=== PATIENT | female | born 1990 | race Caucasian/White ===

== ENCOUNTER → 2017-03-08 | Outpatient (CLI) | payer SELFPAY ==
[~2017-03-08] MED LIST: KEFLEX 500MG.500 MG PO; LOMOTIL 2.5MG.2.5 MG PO; NAPROSYN500 M1 PO; NOMEDS; ULTRAM50 MG PO; ZOFRAN ODT8 MG PO
[2017-03-08 11:06] LABS: HEMOGLOBIN 12.8 g/dL (12.2-16.2); LYMPH # 2.7 K/mm3 (0.7-4.5)
[2017-03-08 12:12] LABS: ABO BLOOD TYPE A; RH BLOOD TYPE NEGATIVE
[2017-03-08 16:52] LABS: AMPHETAMINES/METAMPHETAMINES NEGATIVE ng/mL (<1000)
[2017-03-09 08:46] LABS: HIV Screen 4th Generation wRfx Non Reactive (Non Reactive); Rapid Plasma Reagin, Quant Non Reactive (NonRea<1:1); Rubella Antibodies, IgG 2.17 index (Immune >0.99)
[2017-03-09 14:37] LABS: HBsAg Screen Negative (Negative)
== END ==
LOC: LAB 10:24
PROVIDERS: Obstetrics & Gynecology
DX: Z36 Encounter for antenatal screening of mother (principal); Z04.8 Encounter for examination and observation for other specified reasons; Z34.80 Encounter for supervision of other normal pregnancy, unspecified trimester
CPT/HCPCS: G0432

== ENCOUNTER → 2017-04-22 | Outpatient (CLI) | payer MEDICAID ==
[2017-04-29 18:12] LABS: Gest. Age on Collection Date 16.3 WEEKS; Maternal Age At EDD 27.7 YEARS; Results REPORT
[2017-04-29 18:13] LABS: AFP Value 19.7 ng/mL; Insulin Dep Diabetes NOT PROVIDED; hCG MoM 0.44; hCG Value 11696 mIU/mL; uE3 Value 0.75 ng/mL
[2017-04-29 18:14] LABS: DIA MoM 0.58; DIA Value 78.15 pg/mL; DSR (Second Trimester) 1 IN 10000; Interpretation SCREEN NEGATIVE; OSBR Risk 1 IN 10000; uE3 MoM 0.96
== END ==
LOC: LAB 09:59
PROVIDERS: Obstetrics & Gynecology
DX: Z36 Encounter for antenatal screening of mother (principal)

== ENCOUNTER 2017-05-24 11:19 | Outpatient (CLI) | payer MEDICAID ==
[~2017-05-24] VITALS: Ht 175.3 cm; Wt 110.2 kg
[2017-05-24 11:44] VITALS: BP 120/67
[2017-05-24] MEDS ORDERED: PRENATAL PLUS1 TA1 PO (11:48)
[2017-05-24] MEDS ORDERED: ACETAMINOPHEN500 M3 PO (11:49)
--- NOTE | 2017-05-26 11:33 | RADIOLOGY REPORT PS360 ---
US PREG [id number] HISTORY: Fall with abdominal injury 21 WEEKS,FALL ORDERING PHYSICIAN: Felix Burch MD PATIENT AGE: 27 years COMPARISON: None FINDINGS: Limited images are obtained showing a single live intrauterine gestation. Average ultrasound age is 21 weeks 0 days with an estimated due date of 10/03/2017 an estimated weight of 412 g which is 66 percentile based on last menstrual period. BPD 20 weeks 5 days, OFD 22 weeks 0 days, HC 20 weeks 6 days, abdominal circumference 21 weeks 5 days, FL 21 weeks 1 day. Heart rate is 1 65 bpm. The fetus is in breech orientation. The placenta is anterior and fundal. No previa or retroplacental hemorrhage apparent. This exam does not suffice for a complete anatomical evaluation of the fetus. IMPRESSION: Live IUP at 21 weeks in breech presentation as described above.
== END 2017-05-24 13:56 | disposition home or self-care (01) ==
LOC: OBOUT 11:19 → OB 11:19 → OBOUT 13:56
DX: O26.92 Pregnancy related conditions, unspecified, second trimester (principal); Z3A.20 20 weeks gestation of pregnancy; W19.XXXA Unspecified fall, initial encounter

== ENCOUNTER 2017-05-24 13:59 | Emergency (ER) | payer MEDICAID ==
[~2017-05-24] VITALS: Ht 175.3 cm; Wt 110.2 kg
[~2017-05-24 13:59] MED LIST changes: +ACETAMINOPHEN500 M3 PO; +PRENATAL PLUS1 TA1 PO
--- OUTSIDE RECORDS SUMMARY | 2017-05-24 14:23 | External Medical Summary Rpt | CCD ---
Author Author , ANGEL ORTIZ Address Unknown Phone [email or web address] Care Team Providers Care Coating Machine Operator Name Role Phone Nicole Hines MD, Unavailable Unavailable Nicole Cano MD, Unavailable Unavailable Matt Cano MD Purpose Continuity of Care Document - 03-24-2013 through 2016 Problems Code Diagnosis DOS Provider Status 305.1 305.1 06-03-2013 [place] TOBACCO USE [facility] DISORDER [facility] 719.42 719.42 06-03-2013 [facility] PAIN-UP/ARM Hospital 719.46 719.46 06-03-2013 [facility] PAIN-L/LEG Hospital 380.10 380.10 03-24-2013 [place] INFEC [facility] OTITIS [facility] EXTERNA NOS 780.4 780.4 03-24-2013 [facility] VERTIGO Allergies, Adverse Reactions, Alerts Type Drug Allergy Adverse Reaction to Substance Substance Reaction Severity Amoxicillin NA-NAUSEA/VOMITING Unknown Codeine NA-NAUSEA/VOMITING Unknown Clavulanic Acid NA-NAUSEA/VOMITING Unknown Medications Na ND Rx Da Fi Fi Am Da Di Ph RX Ph St me C No te ll ll ou ys ag ar # ys at rm s nt no ma ic us Or Da si cy ia de te s n re d TR 65 10 0 No AM 16 -2 AD 20 7- Lo OL 62 20 ng 71 13 er HC 0 L Ac 50 ti ve MG TA BL ET CE 62 08 0 No PH 75 -2 AL 60 4- Lo EX 29 20 ng IN 48 13 er 8 50 Ac 0 ti MG ve CA PS UL E NE 24 08 0 No OM 20 -2 YC 80 4- Lo IN 63 20 ng -P 56 13 er OL 2 YM Ac YX ti IN ve -H C EA R JONES SP AN 24 08 0 No TI 20 -2 PY 80 4- Lo RI 56 20 ng NE 16 13 er -B 2 EN Ac ZO ti CA ve IN E EA R DR OP TR 65 08 0 No AM 16 -2 AD 20 4- Lo OL 62 20 ng 71 13 er HC 0 L Ac 50 ti ve MG TA BL ET Vital Signs 06-03-2013 14:31 Name Value Interpretat Reference Comment ion Range BP 88 mm[Hg] Diastolic BP Systolic 137 mm[Hg] Heart 98 /min Rate/Pulse O2% 98 % Respiratory 20 /min Rate 05-27-2013 18:04 Name Value Interpretat Reference Comment ion Range BP 77 mm[Hg] Diastolic BP Systolic 140 mm[Hg] Heart 90 /min Rate/Pulse O2% 99 % Respiratory 20 /min Rate 05-27-2013 17:47 Name Value Interpretat Reference Comment ion Range BP 76 mm[Hg] Diastolic BP Systolic 138 mm[Hg] Heart 99 /min Rate/Pulse O2% 99 % Respiratory 20 /min Rate 03-24-2013 21:30 Name Value Interpretat Reference Comment ion Range BP 72 mm[Hg] Diastolic BP Systolic 129 mm[Hg] Heart 90 /min Rate/Pulse O2% 100 % Respiratory 20 /min Rate 03-24-2013 20:55 Name Value Interpretat Reference Comment ion Range BP 66 mm[Hg] Diastolic BP Systolic 131 mm[Hg] Heart 92 /min Rate/Pulse O2% 100 % Respiratory 20 /min Rate Encounters Encounter Start End Date Code Location Performer Type Date Emergency LÁZARO Hines MD (ER) 3 13:58 3 14:31 [facility] Emergency LÁZARO Hines MD (ER) 3 17:11 3 18:05 [facility] Emergency LÁZARO Cano MD (ER) 3 20:14 3 21:30 [facility]
--- OUTSIDE RECORDS SUMMARY | 2017-05-24 14:23 | External Medical Summary Rpt | CCD ---
Author Author , ANGEL ORTIZ Address Unknown Phone [email or web address] Team Providers Care Fifth Hand Name Role Phone Nicole Hines MD, Unavailable Unavailable Nicole Cano MD, Unavailable Unavailable Matt Cano MD Purpose Continuity of Care Document - 03-24-2013 through 2016 Problems Code Diagnosis DOS Provider Status 305.1 305.1 06-03-[address] [place] [address] [facility] DISORDER [facility] 719.42 719.42 06-03-2013 [facility][1] PAIN-UP/ARM Hospital 719.46 719.46 06-03-2013 [facility][1] PAIN-L/LEG Hospital 380.10 380.10 03-24-[address] [place] [address] [facility] OTITIS [facility] EXTERNA NOS 780.4 780.4 03-24-2013 [facility] VERTIGO Allergies, Adverse Reactions, Alerts Type Drug [...] Hines MD (ER) 3 13:58 3 14:31 [facility] Emergency LÁZARO Hines MD (ER) 3 17:11 3 18:05 [facility] Emergency LÁZARO Cano MD (ER) 3 20:14 3 21:30 [facility]
--- NOTE | 2017-05-24 14:27 | Emergency Room Report ---
History of Present Illness Time Seen by 1405 Presenting Problem in Triage Pt arrived:Wheelchair Presenting Problem:R KNEE PAIN R/T FALL AT APPROX 0200 THIS MORNING. 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 Onset of symptoms date/time:05/24/17 or onset unknown for: Treatment Prior to Arrival: OXYGEN TANK FILLER Provided by: Sepsis Risk Assessment: Temp: 98.5 B/P: 125/78 MAP: 93 Pulse: 80 Resp: 18 Recent fever? N Clinical Suspician of Infection? N Mental Status: 1 - Regular (Normal Baseline) Sepsis Risk:Low Sepsis Risk Have you (or family members/close friends) recently traveled outside the [place]? N If Yes, where/when: Have you had exposure to infectious disease within the past month? N TB? Other? Specify: Source patient, RN notes reviewed, family, RN/MD Exam Limitations no limitations Comment This is a 27-year-old female patient, 21 weeks , sent to the emergency room from the labor and delivery floor for evaluation of her RIGHT knee pain/injury. Patient has fallen around 2 AM while at home, earlier today, reports antalgic gait and mild discomfort in anterior RIGHT knee aspect. Patient denies any other associated injuries. Patient was cleared on the OB floor prior to arrival to the emergency room (ultrasound/FHT). ALLERGIES Coded Allergies: amoxicillin (From Augmentin) (NA-NAUSEA/VOMITING 05/24/17) clavulanic acid (From Augmentin) (NA-NAUSEA/VOMITING 05/24/17) codeine (NA-NAUSEA/VOMITING 05/24/17) Home Medications Reported Medications MULTIVIT-MIN W/FE-FA ( Multivitamin Tablet) 1 TAB PO DAILY Acetaminophen (Acetaminophen Extra Strength) 500 MG PO Q6HP PRN HEADACHES History Medical History General CAD? No Angina: No [place]: No Hypertension? No Hyperlipidemia? No CHF? No DVT? No PE? No COPD? No Asthma? No Anemia? No GERD? No Gastric ulcers? No GI Bleed? No Hernia? No Thyroid Problems? No Hypothyroidism? No CVA? No Seizures? No Diabetes? No Renal Insuffiency? No End Stage Renal Disease? No UTI? No Stones? No GB Disease: No Nephritic Syndrome? No Asplenia? No Hepatitis? No Sickle Cell Disease? No Arthritis? No Migraines? No Cataracts? No Glaucoma? No MRSA? No HIV? No TB? No Anxiety? No Depression? No Cancer? No More? 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 No: respiratory distress. Lung Sounds bilateral: normal breath sounds, lungs clear. Cardiovascular normal exam, regular rate/rhythm, no peripheral edema, no gallop, no JVD, no murmur, no rub, normal peripheral pulses Peripheral Pulses Pulses normal Yes Gastrointestinal normal bowel sounds, normal exam, non tender, soft, no organomegaly Extremities normal range of motion, normal inspection, RIGHT knee tender to palpation anteriorly, no joint effusion, no joint deformity, negative anterior drawer, negative Lv maneuver Neurologic alert, transformation coach II-XII nml as tested, normal exam, oriented x 3 Mental status normal mood/affect Skin intact, normal color, warm/dry Medical Decision Making LABS/Meds/Orders Pt receiving controlled substance in ED? No Comment 1445-upon reevaluation patient appears medically stable, in no acute distress. Advised patient to apply an Lukasz wrap, ice packs locally, keep RIGHT leg elevated , if not better to follow-up with one of the orthopedic surgeons, Dr. Ridley or Dr. Caputo, per discharge instructions. Results/Orders Orders Procedure Date/time Status KNEE-3 VIEWS-RT 05/24 1405 Active XRAY/CT/US XRAY/CT/US XRAY knee (right) XR interpretation by reviewed by me Xray Results normal/NAD, no fracture seen Departure Departure Time of Disposition 1457 Disposition DC Home or Self Care(routine) Clinical Impression Primary Impression: Contusion of right knee Qualifiers: Encounter type: initial encounter Qualified Code: S80.01XA - Contusion of right knee, initial encounter Condition STABLE Referrals Keyana FLEMING,Samir CAPUTO MD, SHARLENE GONSALVES Patient Instructions DI for Contusion Additional Instructions Please apply an ice pack locally, use a walker over the next few days (partial weight bearing right lower extremity), till better. Please schedule follow-up appointment within one of the orthopedic surgeons listed below, Dr. Ridley or Dr. Caputo, within a week. Discharge Counseling Counseled pt/family regarding diagnosis, test results, medications/RX, home care, follow up needs Comment Please apply an ice pack locally, use a walker over the next few days (partial weight bearing right lower extremity), till better. Please schedule follow-up appointment within one of the orthopedic surgeons listed below, Dr. Ridley or Dr. Caputo, within a week. ED Critical Care Critical Care No at [phone]
--- NOTE | 2017-05-24 14:27 | Emergency Room Report ---
History of Present Illness Time Seen by 1405 Presenting Problem in Triage Pt arrived:Wheelchair Presenting Problem:R KNEE PAIN R/T FALL AT APPROX 0200 THIS MORNING. 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 Onset of symptoms date/time:05/24/17 or onset unknown for: Treatment Prior to Arrival: GEOGRAPHIC ANALYST Provided by: Sepsis Risk Assessment: Temp: 98.5 B/P: 125/78 MAP: 93 Pulse: 80 Resp: 18 Recent fever? N Clinical Suspician of Infection? N Mental Status: 1 - Regular (Normal Baseline) Sepsis Risk:Low Sepsis Risk Have you (or family members/close friends) recently traveled outside the [place]? N If Yes, where/when: Have you had exposure to infectious disease within the past month? N TB? Other? Specify: Source patient, RN notes reviewed, family, RN/MD Exam Limitations no limitations Comment This is a 27-year-old female patient, 21 weeks , sent to the emergency room from the labor and delivery floor for evaluation of her RIGHT knee pain/injury. Patient has fallen around 2 AM while at home, earlier today, reports antalgic gait and mild discomfort in anterior RIGHT knee aspect. Patient denies any other associated injuries. Patient was cleared on the OB floor prior to arrival to the emergency room (ultrasound/FHT). ALLERGIES Coded Allergies: amoxicillin (From Augmentin) (NA-NAUSEA/VOMITING 05/24/17) clavulanic acid (From Augmentin) (NA-NAUSEA/VOMITING 05/24/17) codeine (NA-NAUSEA/VOMITING 05/24/17) Home Medications Reported Medications MULTIVIT-MIN W/FE-FA ( Multivitamin Tablet) 1 TAB PO DAILY Acetaminophen (Acetaminophen Extra Strength) 500 MG PO Q6HP PRN HEADACHES History Medical History General CAD? No Angina: No [place]: No Hypertension? No Hyperlipidemia? No CHF? No DVT? No PE? No COPD? No Asthma? No Anemia? No GERD? No Gastric ulcers? No GI Bleed? No Hernia? No Thyroid Problems? No Hypothyroidism? No CVA? No Seizures? No Diabetes? No Renal Insuffiency? No End Stage Renal Disease? No UTI? No Stones? No GB Disease: No Nephritic Syndrome? No Asplenia? No Hepatitis? No Sickle Cell Disease? No Arthritis? No Migraines? No Cataracts? No Glaucoma? No MRSA? No HIV? No TB? No Anxiety? No Depression? No Cancer? No More? 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 No: respiratory distress. Lung Sounds bilateral: normal breath sounds, lungs clear. 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 No Comment 1445-upon reevaluation patient appears medically stable, in no acute distress. Advised patient to apply an Lukasz wrap, ice packs locally, keep RIGHT leg elevated , if not better to follow-up with one of the orthopedic surgeons, Dr. Ridley or Dr. Caputo, per discharge instructions. Results/Orders Orders Procedure Date/time Status KNEE-3 VIEWS-RT 05/24 1405 Active XRAY/CT/US XRAY/CT/US XRAY knee (right) XR interpretation by reviewed by me Xray Results normal/NAD, no fracture seen Departure Departure Time of Disposition 1457 Disposition DC Home or Self Care(routine) Clinical Impression Primary Impression: Contusion of right knee Qualifiers: Encounter type: initial encounter Qualified Code: S80.01XA - Contusion of right knee, initial encounter Condition STABLE Referrals Keyana FLEMING,Samir CAPUTO MD, SHARLENE GONSALVES Patient Instructions DI for Contusion Additional Instructions Please apply an ice pack locally, use a walker over the next few days (partial weight bearing right lower extremity), till better. Please schedule follow-up appointment within one of the orthopedic surgeons listed below, Dr. Ridley or Dr. Caputo, within a week. Discharge Counseling Counseled pt/family regarding diagnosis, test results, medications/RX, home care, follow up needs Comment Please apply an ice pack locally, use a walker over the next few days (partial weight bearing right lower extremity), till better. Please schedule follow-up appointment within one of the orthopedic surgeons listed below, Dr. Ridley or Dr. Caputo, within a week. ED Critical Care Critical Care No at [phone]
--- OUTSIDE RECORDS SUMMARY | 2017-05-24 14:28 | External Medical Summary Rpt | CCD ---
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 AMPLIFIED PROBE TQ COLLECTIO 43776 [facility] N VENOUS 5 [facility] B[facility] MED CTR MED CTR VENIPUNCT HOSIERY MATER ST HOSIERY MATER ST URE GONADOTRO [address] [facility] CHORIONIC MED CTR MED CTR HOSIERY MATER ST HOSIERY MATER ST QUANTITAT KVNG OTHER [address] ST MANUALLY 2 [place] ASSISTED DELIVERY MEDICALCE MEDICALCE NTER NTER 01374 [facility] BIOPHYSIC 2 MATERNAL AL ME PROFILE NON-STRES S TESTING VAGINAL 70243 ST CAROL ANN DELIVERY 2 [place] LAURIE ONLY W/POSTPAR PHYSICIAN [facility] CARE S NEURAXIAL 60664 INDEPENDE LINNEMANN LABOR 2 NT TIN ANALG/ANE ANESTHESI S PLND OLOGIST VAGINAL DELIVERY INJECTION J2550 ST 2 [place] PROMETHAZ INE HCL MEDICALCE MEDICALCE UP TO 50 [place] [address] [facility] NONSTRESS 2 [facility] TEST MEDICALCE MEDICALCE NTER [place]TER [place] PREG 96413 [facility] UTERUS 2 MATERNAL AND REAL TIME F/U MED TRNSABDL PER FETUS IADNA 74063 [facility] NEISSERIA 2 [facility] GONORRHOE MEDICALCE MEDICALCE AE NTER NTER AMPLIFIED PROBE TQ IADNA 92936 [facility] CHLAMYDIA 2 [facility] TRACHOMAT MEDICALCE MEDICALCE IS NTER NTER AMPLIFIED PROBE TQ IADNA 28685 [facility] STREPTOCO 2 [facility] CCUS GROUP B MEDICALCE MEDICALCE AMPLIFIED NTER NTER PROBE TQ IADNA 79836 [facility] TRICHOMON 2 [facility] VAGINALIS MEDICALCE MEDICALCE DIRECT NTER NTER PROBE TQ IADNA 43111 [facility] GARDNEREL 2 [place] LA VAGINALIS MEDICALCE MEDICALCE DIRECT NTER NTER PROBE TQ IADNA 92229 [facility] JUAN R 2 [place] SPECIES DIRECT MEDICALCE MEDICALCE PROBE TQ NTER NTER COLLECTIO 55577 [facility] N VENOUS 2 [place] BLOOD VENIPUNCT MEDICALCE MEDICALCE URE NTER NTER THERAPEUT 17222 [facility] IC 2 [place] PROPHYLAC TIC/DX MEDICALCE MEDICALCE INJECTION NTER NTER SUBQ/IM GLUCOSE 25422 [facility] POST 2 [place] GLUCOSE DOSE MEDICALCE MEDICALCE NTER NTER BLOOD 14398 [facility] COUNT 2 [place] HEMOGLOBI N MEDICALCE MEDICALCE NTER NTER BLOOD 52342 [facility] COUNT 2 [place] HEMATOCRI T MEDICALCE MEDICALCE NTER NTER INJECTION J2790 [facility] RHO D IG 2 [facility] HUMAN FULL DOSE MEDICALCE MEDICALCE 300 MCG NTER NTER US PREG 10985 [facility] UTERUS 2 DON DON W/DETAIL JOSE ELIAS 1ST GESTATION COLLECTIO [address] [facility] N VENOUS 2 [facility] BLOOD MONICA MONICA V[place] URE INHIBIN A 07170 [facility] 2 [place] [address] [facility] ESTRIOL 2 [facility] MONICA MONICA ALPHA-FET 70982 [facility] OPROTEIN 2 [facility] SERUM MONICA MONICA GONADOTRO 08476 [facility] PIN 2 [facility] CHORIONIC [place] [address] NORMAN AUSTIN 1 FARZANA FARZANA UTERUS 14 WK TRANSABDL GESTAT IADNA 49736 [facility] CHLAMYDIA 1 [facility] TRACHOMAT MEDICALCE MEDICALCE IS NTER NTER AMPLIFIED PROBE TQ IADNA [address] NEISSERIA 1 [place] GONORRHOE MEDICALCE MEDICALCE AE NTER NTER AMPLIFIED PROBE TQ CULTURE [address] BACTERIAL 1 [place] QUANTTATI MEDICALCE MEDICALCE VE COLONY NTER NTER COUNT URINE CYTP 43496 CARMELITA MAE CERVICAL/ 1 KATIA KATIA VAGINAL REQ INTERP PHYSICIAN CYTP C/V [address] AUTO THIN 1 [place] ONOFRE LYR PREPJ SCR MEDICALCE MEDICALCE MNL NTER NTER RESCR PHYS URNLS DIP [address] 1 [place] ONOFRE STICK/TAB FT FT LET RGNT MARY ANNE NORTH NON-AUTO W/O MICRSCP URINE 79738 ST 1 [place] ONOFRE TEST FT FT VISUAL MARY [place]NE NORTH COLOR CMPRSN METHS IADNA [address]18 ST NEISSERIA 1 [place] ONOFRE FT FT GONORRHOE MARY ANNE NORTH AE AMPLIFIED PROBE TQ IADNA 39847 ST CHLAMYDIA 1 [place] ONOFRE FT FT TRACHOMAT MARY ANNE NORTH IS AMPLIFIED PROBE TQ COLLECTIO 05272 ST N VENOUS 1 [place] ONOFRE BLOOD FT FT VENIPUNCT MARY ANNE NORTH URE BASIC 52359 [facility] METABOLIC 1 [place] ONOFRE PANEL FT FT CALCIUM MARY ANNE NORTH TOTAL ONDANSETR Q[address] ST ST ON HCL 8 1 [place] ONOFRE MG ORL FT FT NOT >48 M[place] NORTH HR DOSE REGIMEN BLOOD [address] COUNT 1 [place] ONOFRE COMPLETE FT FT AUTO&AUTO MARY ANNE NORTH DIFRNTL WBC GONADOTRO 0[address]04 ST PIN 1 [place] ONOFRE CHORIONIC FT FT MARY ANNE NORTH QUANTITAT KVNG IADNA 91666 ST CHLAMYDIA 9 [place] ONOFRE TRACHOMAT MEDICALCE MEDICALCE IS NTER NTER AMPLIFIED PROBE TQ IADNA [address] ST [place] 9 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 [employer], Zuldi L/LIMITED STUDY INDUCTION 7301 [facility] LABOR [address] [place] [address] L RUPTURE [place]BRAN[place] RE[place]IR OF 7569 [facility] OTHER [address] [place] [address] OBSTETRIC LACERATIO N VAGINAL 92455 [place], DELIVERY 9 [facility] ONLY MED CTR W/POSTPAR [facility] CARE 1ST 08177 PATIENT [facility], HOS[facility]/BRY 9 FIRST KARMEN C [facility] CARE PER DAY NML NB NEURAXIAL 78476 [facility] BANNER, LABOR 9 ANETHESIA IWONA ANALG/ANE ER S PLND VAGINAL DELIVERY ECHO 68625 [facility], 9 [facility] W/WO M-MODE ASSOC REPEAT LLC STD 55593 [place], NONSTRESS 9 [place] MARY ANNE G TEST MED CTR IADNA 06103 [facility] STREPTOCO 9 [place] CCUS GROUP B MEDICALCE MEDICALCE AMPLIFIED NTER NTER PROBE TQ IADNA 45344 [facility] CHLAMYDIA 9 ECRU [place] TRACHOMAT MEDICALCE MEDICALCE IS NTER NTER AMPLIFIED PROBE TQ IADNA 70172 [facility] NEISSERIA 9 [place] GONORRHOE MEDICALCE MEDICALCE AE NTER NTER AMPLIFIED PROBE TQ US PREG 76530 [facility] UTERUS [address] [place] [address] REAL TIME [facility] F/U TRNSABDL PER FETUS COLPOSCOP 74264 ST SILANEE, Y CERVIX 9 [place] CHARLA UPPER/ADJ MED CTR ACENT VAGINA ANTIBODY 15259 [facility] SCREEN [address] [place] [address] RBC EACH [facility] SERUM TECHNIQUE BLOOD 43609 [facility] TYPING [address] [place] [address] SEROLOGIC [facility] ABO BLOOD 96345 [facility] TYPING [address] [place] [address] SEROLOGIC [facility] RH (D) THERAPEUT 90721 [facility] IC [address] [place] [address] PROPHYLAC [facility] TIC/DX INJECTION SUBQ/IM INJECTION J2790 [facility] RHO D IG [address] [place] [address] HUMAN [facility] FULL DOSE 300 MCG US PREG 00149 [facility] [place], UTERUS 9 [facility] REAL TIME I F/U TRNSABDL ASSOC PER FETUS LLC US PREG 89875 [facility] UTERUS [address] [place] [address] W/DETAIL [facility] JOSE ELIAS 1ST GESTATION INHIBIN A 62014 [facility] 9 [facility] MEDICALCE MEDICALCE NTER NTER COLLECTIO 75070 [facility] N VENOUS 9 [facility] BLOOD VENIPUNCT MEDICALCE MEDICALCE URE NTER NTER ALPHA-FET 01318 [facility] OPROTEIN 9 [facility] SERUM [place] [address] [facility] ESTRIOL [facility] MEDICALCE MEDICALCE NTER NTER GONADOTRO 97348 [facility] PIN [facility] CHORIONIC MEDICALCE [place] [address] [facility] [place], 8 [place] [facility] UTERUS 14 I WK TRANSABDL ASSOC / LLC GESTAT URNLS DIP [address] STICK/TAB [facility] HOSPITAL LET RGNT NON-AUTO W/O MICRSCP CYTP 57778 [facility], CERVICAL/ 8 CINTI HAILEE E VAGINAL PATHOLOGI REQ STINC INTERP PHYSICIAN GONADOTRO 90068 [facility] PIN [address] [place] [address] CHORIONIC EAST EAST QUALITATI VE BLOOD 71002 [facility] COUNT [address] [place] [address] COMPLETE [facility] AUTO&AUTO DIFRNTL WBC THER 22812 [facility] PROPH/DX [address] [place] [address] NJX EA [facility] SEQL IV PUSH SBST/DRUG IV NFUS 01383 [facility] HYDRATION [address] [place] [address] EA HR [facility] [place] [address] [facility] AMYLASE [address] [place] [address] URNLS DIP [address] STICK/TAB [facility] LET RGNT AUTO W/O MICROSCOP Y BASIC 64102 [facility] METABOLIC [address] [place] [address] PANEL [facility] [place] [address] [facility] LIPASE [address] [place] [address] THER 38231 [facility] PROPH/DX [address] [place] [address] NJX IV [facility] PUSH 1ST SBST/DRUG URINE 81631 DHS/CO PENDELETO 8 HEALTH N CO TEST [facility] VISUAL BANK ACCT CENTER COLOR CMPRSN METHS Encounters Encounter Start End Date Code Location Performer Type Date OFFICE 11804 [facility] 7 7 PHYSICIAN T VISIT S GROUP 15 MINUTES OFFICE 68401 [facility] 7 7 PHYSICIAN T VISIT S GROUP 15 MINUTES HOSPITAL . 7 7 [place] [facility] 52986 [facility] 7 7 [place] II T VISIT 15 PHYSICIAN MINUTES [facility] - 7 7 [place] OUTPATIEN MEGAN T OFFICE 28604 [facility] 7 7 [place] II T VISIT 25 PHYSICIAN MINUTES [facility] - 7 7 [place] ERNESTINA [facility] OFFICE 83940 [facility]ILD [facility] [place] [facility] T VISIT 25 PHYSICIAN MINUTES S EMERGENCY 02972 [facility] 7 7 EMERGENCY VISIT HIGH PHYSICIAN SEVERITY& S THREAT FUN OFFICE 64649 [facility] 6 6 [place] II MERY T VISIT 15 PHYSICIAN MINUTES S [facility] - 6 6 [place] OUTRIYAEN [facility] EMERGENCY 87980 [facility] CULBERTSO 6 6 EMERGENCY N ADA DEPARTMEN T VISIT PHYSICIAN MODERATE S SEVERITY OFFICE 54606 [facility] 6 6 [place] FARZANA T VISIT 15 PHYSICIAN MINUTES S EMERGENCY 20563 [facility] CELSO 6 6 EMERGENCY RENETTA DEPARTMEN T VISIT PHYSICIAN HIGH/URGE S NT SEVERITY EMERGENCY 69261 ST. 6 6 [place] [facility] VISIT MODERATE SEVERITY HOSPITAL ST. - 6 6 [place] [facility] - 6 6 [place] OUTEDITH [facility] PERIODIC 56273 REBECCA PREVENTIV 6 6 [place] Oropeza MED EST PATIENT PHYSICIAN 18-[address] - 6 6 [place] [facility] T HOSIERY MATER ST EMERGENCY 51492 [facility] JANETTE NAIK 6 6 EMERGENCY DEPARTMEN T VISIT PHYSICIAN HIGH/URGE S NT SEVERITY HOSPITAL ST. - 6 6 [place] OUTPATIEN MEGAN EMERGENCY 60830 [facility] GREVER 6 6 EMERGENCY MAR DEPARTMEN T VISIT PHYSICIAN HIGH/URGE S NT SEVERITY EMERGENCY 55156 [facility] GANIM YARITZA 6 6 EMERGENCY DEPARTMEN T VISIT PHYSICIAN HIGH/URGE S NT SEVERITY EMERGENCY 90308 [facility] KOSCIK 6 6 EMERGENCY AUGUSTINE DEPARTMEN T VISIT PHYSICIAN MODERATE S SEVERITY OFFICE 98120 [facility] 6 6 [place] KATIA T VISIT 25 PHYSICIAN MINUTES S OFFICE 13166 [facility] OUT[facility] 5 5 [place] KATIA T VISIT [address] [facility] - 5 5 [place] OUTPATIEN [facility] T [facility] OFFICE 16906 [facility] OUTPATIEN 5 5 [place] KATIA T NEW 30 MINUTES PHYSICIAN S OFFICE 13129 [facility] OUT[facility]IEN 5 5 SPRING T VISIT URGENT 25 CARE MINUTES OFFICE 04779 [facility] PRESSLER OUTPATIEN 5 5 spring T VISIT URGENT 25 CARE MINUTES EMERGENCY 93081 [facility] LOVE LORA DEPT 5 5 EMERGENCY VISIT HIGH PHYSICIAN SEVERITY& S THREAT [facility] ST - 5 5 [place] OUTPATIEN [facility] ST - 5 5 [place] OUTPATIEN [facility] ST - 5 5 [place] [facility]PATI[facility] ST - 5 5 [place] OUTPATIEN MED CTR T [facility] OFFICE 49252 [facility] OUTPATIEN 5 5 [place] LIS T VISIT [address] - 5 5 [place] OUTPATIEN MED CTR T [facility] ST - 2 2 [place] OUTPATIEN T MEDICALCE [facility] OFFICE [address]3036 ST OUTPATIEN 2 2 [place] T VISIT 5 MINUTES [facility] - 2 2 [place] INPATIENT MEDICALCE [facility] OFFICE [address] ST OUTPATIEN 2 2 [place] T VISIT 40 MEDICALCE MINUTES [facility] - 2 2 [place] OUTPATIEN T MEDICALCE NT OFFICE 47444 [facility] OUTPATIEN 2 2 [place] PRIYANKA T VISIT 15 PHYSICIAN MINUTES S OFFICE 37180 ST [facility] OUTPATIEN 2 2 [place] MARIA T T VISIT 15 PHYSICIAN MINUTES S OFFICE 56758 [facility] OUTPATIEN 2 2 [place] PRIYANKA T VISIT [address] - 2 2 [place] OUTPATIEN T [facility] - 2 2 [place] OUTPATIEN T MEDICALCE [facility] OFFICE [address] ST [facility] OUTPATIEN 2 2 [place] PRIYANKA T VISIT 15 PHYSICIAN MINUTES S OFFICE 93715 ST ZERHUSEN OUTPATIEN 2 2 [place] SHA T VISIT 15 PHYSICIAN MINUTES S OFFICE [address] ST ZERHUSEN OUTPATIEN 2 2 [place] SHA T VISIT [address] - 2 2 [place] [facility]IEN [facility] - 2 2 [place] OUTPATIEN T MEDICALCE NT OFFICE 46319 ST GANSHIRT OUTPATIEN 2 2 [place] DAISY T VISIT 15 PHYSICIAN MINUTES S OFFICE 17[address] ST CAROL ANN OUTPATIEN 2 2 [place] LAURIE T VISIT [address] - 2 2 [place] OUTPATIEN T MEDICALCE NT EMERGENCY 62994 ST 2 2 [place] DEPARTMEN FT T VISIT MARY ANNE LOW/MODER SEVERITY EMERGENCY 30624 HERFEL HERFEL 2 2 PRIYANKA [facility] T VISIT HIGH/URGE NT SEVERITY HOSPITAL ST - 2 2 [place] LOOMISPATIEN FT [facility] ST. - 2 2 [place] OUTPATIEN MONICA T OFFICE 71331 [facility] [place] LIVE T VISIT 15 PHYSICIAN MINUTES S OFFICE 37249 [facility] OUTPATIEN 1 1 [facility] 60 URGENT MINUTES CARE OFFICE 26450 FLOYDIR [facility] 1 1 [place] VILLA T VISIT 15 PHYSICIAN MINUTES [facility] ST - 1 1 [place] TAPIAEN T [facility] ST - 1 1 [place] [facility] 80463 [facility] 1 1 DAISY DAISY T VISIT [address] - [address] [place] [address] [facility] EMERGENCY [address]35 ST 1 1 [place] [facility] T VISIT WAVERLY HIGH/URGE [facility] ST - 9 9 [place] [facility] [address] INPATIENT EAST OFFICE 24433 [facility] 9 9 [place] ADRIAN T VISIT MED CTR 15 MINUTES OFFICE 25917 [facility] 9 9 [place] ADRIAN T VISIT MED CTR 15 MINUTES EMERGENCY [address] [facility] SE[facility] [address] [facility] [address] [place] [address] [place] [facility] [address] [facility] 60829 [facility] 9 9 [place] AM[place] T [facility] USMAN 15 MINUTES [facility] - 9 9 [facility] OFF[facility] [address] [facility] 9 9 [place] Ronnie GUERRERO T VISIT MED [facility] 15 MINUT[facility] OFFICE 29522 [facility] 9 9 [place] [facility] 15 MINUTES [facility] - 9 9 [facility] 92834 [facility] 9 9 [place] [facility] 15 MINUTES [facility] 9 9 [facility] 9 9 [place] SALCIDO NTER OFFICE 55781 [facility] 9 9 [place] Estr[place] T VISIT MED CTR 15 MINUTES EMERGENCY [id number] 8 8 [facility] T VISIT MODERATE [facility]VERITY [facility] ST - [address] [facility] T EMERGENCY 74641 [facility], 8 8 [place] Rousseau [facility] T VISIT HIGH/URGE NT SEVERITY OFFICE 91262 [facility] 8 8 PHYSICIAN SHER T VISIT S FOR 25 WOMEN MINUTES EMERGENCY 38260 EMERGENCY [place], 8 8 ALONDRA JOHN [facility] T VISIT [facility] HIGH/URGE [place] NT SEVERITY EMERGENCY [id number] T VISIT MODERATE SEVERITY [facility] [address] T OFFICE [address] [facility] [address] [place] T VISIT [address]
--- OUTSIDE RECORDS SUMMARY | 2017-05-24 14:28 | External Medical Summary Rpt | CCD ---
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 [facility] UTERUS 14 I WK TRANSABDL ASSOC / LLC GESTAT URNLS DIP [address] STICK/TAB [facility] HOSPITAL LET RGNT NON-AUTO W/O MICRSCP CYTP 68848 [facility] [place], CERVICAL/ 8 CINTI HAILEE E VAGINAL PATHOLOGI REQ STINC INTERP PHYSICIAN GONADOTRO 23438 [facility] PIN [address] [place] [address] CHORIONIC EAST EAST QUALITATI VE BLOOD 56423 [facility] COUNT [address] [place] [address] COMPLETE [facility] AUTO&AUTO DIFRNTL WBC THER 17702 [facility] PROPH/DX [address] [place] [address] NJX EA [facility] SEQL IV PUSH SBST/DRUG IV NFUS 81752 [facility] HYDRATION [address] [place] [address] EA HR [facility] [place] [place] [address] [facility] AMYLASE [address] [place] [address] URNLS DIP [phone] STICK/TAB [facility] LET RGNT AUTO W/O MICROSCOP Y BASIC 76183 [facility] METABOLIC [address] [place] [address] PANEL [facility] [place] [address] [facility] LIPASE [address] [place] [address] THER 71118 [facility] PROPH/DX [address] [place] [address] NJX IV [facility] PUSH 1ST SBST/DRUG URINE 33246 DHS/CO [place] 8 HEALTH N CO TEST [facility] V[facility]UAL [facility] ACCT CENTER COLOR CMPRSN METHS Encounters Encounter Start End Date Code Location Performer Type Date OFFICE 00450 [facility] 7 7 PHYSICIAN T VISIT S GROUP 15 MINUTES OFFICE 40079 [facility] 7 7 PHYSICIAN T VISIT S GROUP 15 MINUTES [facility] . 7 [facility] [place] [facility] 95599 [facility] 7 7 [place] II T VISIT 15 PHYSICIAN MINUTES [facility] - 7 7 [place] OUTPATIEN MEGAN T OFFICE 94552 [facility] 7 [place] II T VISIT 25 PHYSICIAN MINUTES [facility] ST[facility] - 7 7 [place] ERNESTINA [facility] OFFICE 62532 [facility] [place] [facility] T VISIT 25 PHYSICIAN MINUTES S EMERGENCY 60901 [facility] JANETTE DEPT 7 7 EMERGENCY VISIT HIGH PHYSICIAN SEVERITY& S THREAT FUN OFFICE 90579 [facility] [place] II MERY T VISIT 15 PHYSICIAN MINUTES S [facility] - 6 6 [place] OUTRIYAEN [facility] EMERGENCY 35992 [facility] CULBERTSO 6 6 EMERGENCY N ADA DEPARTMEN T VISIT PHYSICIAN MODERATE S SEVERITY OFFICE 30152 [facility] 6 6 [place] FARZANA T VISIT 15 PHYSICIAN MINUTES S EMERGENCY 97695 [facility] CELSO 6 6 EMERGENCY RENETTA DEPARTMEN T VISIT PHYSICIAN HIGH/URGE S NT SEVERITY EMERGENCY 21321 ST. 6 6 [place] [facility] VISIT MODERATE SEVERITY [facility] ST[facility] - 6 6 [place] [facility] - 6 6 [place] OUTEDITH [facility] PERIODIC 52304 REBECCA PREVENTIV 6 6 [place] Oropeza MED EST PATIENT PHYSICIAN 18-[address] - 6 6 [place] [facility] T OPTICIANRY TEACHER ST EMERGENCY 87236 [facility] JANETTE NAIK 6 6 EMERGENCY DEPARTMEN T VISIT PHYSICIAN HIGH/URGE S NT SEVERITY [facility]OSPITAL ST. - 6 6 [place] OUTPATIEN MEGAN EMERGENCY 85177 [facility] GREVER 6 6 EMERGENCY MAR DEPARTMEN T VISIT PHYSICIAN HIGH/URGE S NT SEVERITY EMERGENCY 62936 [facility] GANIM YARITZA 6 6 EMERGENCY DEPARTMEN T VISIT PHYSICIAN HIGH/URGE S NT SEVERITY EMERGENCY 25478 [facility] KOSCIK 6 6 EMERGENCY AUGUSTINE DEPARTMEN T VISIT PHYSICIAN MODERATE S SEVERITY OFFICE 56230 [facility] 6 6 [place] KATIA T VISIT 25 PHYSICIAN MINUTES S OFFICE 03226 [facility] 5 5 [place] KATIA T VISIT [address] [facility] - 5 5 [place] OUTPATIEN MED CTR T [facility] OFFICE [address] [facility] OUT[facility] 5 5 [place] KATIA T NEW 30 MINUTES PHYSICIAN S OFFICE 57074 [facility] OUT[facility] 5 5 [place] T VISIT URGENT 25 CARE MINUTES OFFICE 46539 [facility] PRESSLER OUTPATIEN 5 5 spring T VISIT URGENT 25 CARE MINUTES EMERGENCY 92375 [facility] LOVE LORA DEPT 5 5 EMERGENCY VISIT HIGH PHYSICIAN SEVERITY& S THREAT [facility] ST - 5 5 [place] OUTPATIEN [facility] ST - 5 5 [place] OUTPATIEN [facility] - 5 5 [place] OUTPATIEN [facility] ST - 5 5 [place] OUTPATIEN MED CTR T [facility] OFFICE 26181 [facility] OUTPAT[facility] 5 5 [place] LIS T VISIT [address] - 5 5 [place] OUTPATIEN [facility] T [facility] ST - 2 2 [place] OUTPATIEN T MEDICALCE [facility] OFFICE [address]83 ST OUTPATIEN 2 2 [place] T VISIT 5 MINUTES [facility] - 2 2 [place] INPATIENT MEDICALCE [facility] OFFICE 01090 ST OUTPATIEN 2 2 [place] T VISIT 40 MEDICALCE MINUTES [facility] ST - 2 2 [place] OUTPATIEN T MEDICALCE NT OFFICE 41944 [facility] OUTPATIEN 2 2 [place] PRIYANKA T VISIT 15 PHYSICIAN MINUTES S OFFICE [address] ST [place] OUTPATIEN 2 2 [place] MARIA T T VISIT 15 PHYSICIAN MINUTES S OFFICE 06889 [facility] 2 2 [place] PRIYANKA T VISIT [address] [facility] - 2 2 [place] OUTPATIEN T MED[facility]CE [facility] - 2 2 [place] OUTPATIEN T MEDICALCE [facility] OFFICE 00684 [facility] OUTPATIEN 2 2 [place] PRIYANKA T VISIT 15 PHYSICIAN MINUTES S OFFICE 06244 ST ZERHUSEN OUTPATIEN 2 2 [place] SHA T VISIT 15 PHYSICIAN MINUTES S OFFICE [address]28 ST ZERHUSEN OUTPATIEN 2 2 [place] SHA T VISIT [address] [facility] - 2 2 [place] OUTPATIEN T [facility] - 2 2 [place] OUTPATIEN T MEDICALCE NT OFFICE 10589 ST GANSHIRT OUTPATIEN 2 2 [place] DAISY T VISIT 15 PHYSICIAN MINUTES S OFFICE 41840 ST CAROL ANN OUTPATIEN 2 2 [place] LAURIE T VISIT [address] [facility] - 2 2 [place] OUTPATIEN T MEDICALCE NT EMERGENCY 92731 ST 2 2 [place] DEPARTMEN FT T VISIT MARY ANNE LOW/MODER SEVERITY EMERGENCY 72383 HERFEL HERFEL 2 2 PRIYANKA [facility] T VISIT HIGH/URGE NT SEVERITY HOSPITAL ST - 2 2 [place] LOOMISPATIEN FT [facility] ST. - 2 2 [place] OUTPATIEN MONICA T OFFICE 27134 [facility] 2 [place] LIVE T VISIT 15 PHYSICIAN MINUTES S OFFICE 38824 [facility] OUTPATIEN 1 1 [facility] 60 URGENT MINUTES CARE OFFICE 41717 FLO[facility]DIR [facility] 1 1 [place] VILLA T VISIT 15 PHYSICIAN MINUTES [facility] ST - 1 1 [place] TAPIAEN T [facility] ST - 1 1 [place] [facility] OFF[facility] 90507 [facility] 1 DAISY DIASY T VISIT [address] - 1 1 [place] DO [facility] EMERGENCY 19899 ST 1 1 [place] [facility] T VISIT [place] HIGH/URGE [facility] ST - 9 9 [place] [facility] [address] INPATIENT EAST OFFICE 17248 [facility] 9 9 [place] ADRIAN T VISIT MED CTR 15 MINUTES OFFICE 98764 [facility] 9 9 [place] ADRIAN T VISIT MED CTR 15 MINUTES EMERGENCY [address] T VISIT [facility] SEVERITY [facility] [address] [facility] OFFICE 231[address] [place] [address] [place] hCu VISIT MED CTR [address] - 9 [facility] NTER OFFICE 40878 [facility] 9 9 [place] AMANDEEP T VISIT MED CTR USMAN 15 MINUTES HOSPITAL [facility] - 9 9 [facility] OFFICE 54239 [facility] 9 9 [place] Ronnie GUERRERO T VISIT MED CTR 15 MINUTES OFFICE 97608 [facility] 9 9 [place] DUNHAM T VISIT MED CTR 15 MINUTES HOSPITAL [facility] - 9 9 [facility] OFFICE 27379 [facility] 9 9 [place] Chu VISIT MED CTR 15 MINUTES [facility] - 9 9 [facility] 9 9 [facility] 9 9 [place] SALCIDO NTER OFFICE 80242 [facility] 9 9 [place]AN Estrada T VISIT MED CTR 15 MINUTES EMERGENCY 00524 8 8 [facility] T VISIT MODERATE SEVERITY HOSPITAL ST - 8 8 [facility] T EMERGENCY 63174 [facility], 8 8 [place] Rousseau [facility] MED CTR T VISIT HIGH/URGE NT SEVERITY OFFICE 13707 [facility] 8 8 PHYSICIAN SHER T VISIT S FOR 25 WOMEN MINUTES EMERGENCY 02848 EMERGENCY GILA, 8 8 [facility] T VISIT [facility] HIGH/URGE [place] NT SEVERITY EMERGENCY [address] T VISIT MODERATE SEVERITY [facility] [address] T OFFICE 827[address] DHS/[facility] [place] [address] CO T VISIT [address]
--- OUTSIDE RECORDS SUMMARY | 2017-05-24 14:30 | External Medical Summary Rpt | CCD ---
Author Author , ANGEL ORTIZ Address Unknown Phone [email or web address] Immunization Name Date Rout CVX Reac Dose Comm Prov Is Faci e tion ent ider Refu lity Give sed n Rho( 02-1 999 Hist 1005 No 1005 D)-I 9-20 oric 00 00 G IV 15 al Info rmat ion - Sour ce Unsp ecif ied Hep 05-0 8 999 Hist H196 No H196 B, 8-20 oric ped/ 01 al adol Info rmat ion - Sour ce Unsp ecif ied Hep 03-2 Intr 8 999 Hist H196 No H196 B, 0-20 amus oric ped/ 01 cula al adol r Info rmat ion - Sour ce Unsp ecif ied
--- OUTSIDE RECORDS SUMMARY | 2017-05-24 14:30 | External Medical Summary Rpt ---
Author Author ANGEL Remy, ANGEL Remy Organization [employer] Address Unknown Phone Unavailable
--- OUTSIDE RECORDS SUMMARY | 2017-05-24 14:30 | External Medical Summary Rpt | CCD ---
Author Author , ANGEL ORTIZ Address Unknown Phone [email or web address] Immunization Name Date Rout CVX Reac Dose [...]
--- NOTE | 2017-05-24 14:58 | RADIOLOGY REPORT PS360 ---
KNEE-3 VIEWS-RT HISTORY: Pain following injury pain ORDERING PHYSICIAN: Gregg Sandoval MD PATIENT AGE: 27 years COMPARISON: None FINDINGS: No fracture or dislocation. No lytic or blastic change. Normal mineralization. No significant arthritic changes evident. No other significant findings IMPRESSION: Negative right Knee
[2017-05-24 15:11] VITALS: BP 107/66
== END 2017-05-24 15:11 | disposition home or self-care (01) ==
LOC: ER 13:59
DX: S80.01XA Contusion of right knee, initial encounter (principal); Z87.891 Personal history of nicotine dependence; Z88.1 Allergy status to other antibiotic agents; W01.0XXA Fall on same level from slipping, tripping and stumbling without subsequent striking against object, initial encounter; Z34.82 Encounter for supervision of other normal pregnancy, second trimester